=== PATIENT | male | born 1990 | race Caucasian/White ===

== ENCOUNTER 2023-06-15 18:21 | Emergency (ER) | payer OTHER ==
[2023-06-15] MEDS ORDERED: Lidocaine 1% 5 ML VIAL INJECT ONE (20:01)
[2023-06-15] MEDS ORDERED: Bacitracin Oint 1 GM U/D Packet TOP ONE (20:01)
== END 2023-06-15 20:56 | disposition home or self-care (01) ==
LOC: DL.ED 18:21
DX: S61.211A Laceration without foreign body of left index finger without damage to nail, initial encounter (principal); F17.210 Nicotine dependence, cigarettes, uncomplicated; W26.8XXA Contact with other sharp object(s), not elsewhere classified, initial encounter
CPT/HCPCS: 12001; 99282; A9270-GY; J3490